=== PATIENT | female | born 1970 | race African-American/Black ===

== ENCOUNTER 2022-11-07 02:49 | Inpatient (IN) ==
[2022-11-07] MEDS ORDERED: ONDANSETRON INJ 2 MG/ML 2 ML VIAL IV STA (03:01)
[2022-11-07] MEDS ORDERED: PIPERACILLIN/TAZOBACTAM 4.5 GM/120 ML BAG IV ONE (03:01)
[2022-11-07] MEDS ORDERED: MoRPHine SULFATE 4 MG/ML 1 ML CARP\\VIAL IV STA (03:01)
[2022-11-07] MEDS ORDERED: DIPHTHERIA/TETANUS/PERTUSSIS Vaccine (Tdap, Age 7+yrs) 0.5mL SYR/VL IM ONE (03:09)
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
[2022-11-07] MEDS ORDERED: TXA 10% Non-IV Routes 100 MG/ML VIAL TOP ONE ×2 (03:11→04:32)
[2022-11-07] MEDS ORDERED: SODIUM CHLORIDE 0.9% 1000ML 1,000 ML IV SCH (03:15)
[2022-11-07] MEDS ORDERED: OPTIRAY 320 500ml IV ONE (03:30)
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
[2022-11-07 03:59] LABS: Basophils # (auto) 0.04 K/uL (0-0.2); Basophils % (auto) 0.3 %; Eosinophils # (auto) 0.07 K/uL (0-0.50); Eosinophils % (auto) 0.5 %; Hematocrit (blood only) 42.9 % (37.0-47.0); Hemoglobin 15.2 g/dl (12.0-16.0); Immature Granulocytes # (auto) 0.05 K/uL (0.01-0.20); Immature Granulocytes % (auto) 0.3 %; Lymphocytes % (auto) 12.6 %; Mean Corpuscular Hemoglobin 33.9 pg (25.0-34.0); Mean Corpuscular Hgb Conc 35.4 g/dL (32.0-36.0); Mean Corpuscular Volume 95.8 fL (80.0-100.0); Mean Platelet Volume 9.4 fL (9.4-12.4); Monocytes # (auto) 0.75 K/uL (0.11-0.59); Neutrophils # (auto) 12.26 K/uL (1.40-6.50); Neutrophils % (auto) 81.3 %; Platelet Count 195 K/uL (130-400); RDW Coefficient of Variation 13.2 % (11.5-14.5); RDW Standard Deviation 47.1 fL (36.4-46.3); Red Blood Count 4.48 M/uL (4.20-5.40); White Blood Count 15.07 K/ul (4.8-10.8)
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
[2022-11-07 04:13] LABS: Albumin Globulin Ratio 1.6 (0.9-2); Albumin Level 4.4 gm/dl (3.4-5.0); BUN Creatinine Ratio 18.3 (10-20); Bilirubin,Total 0.4 mg/dl (0.2-1.0); Calcium 9.4 mg/dl (8.6-10.3); Creatinine Clr Calc Pharmacy 4.9 ml/min; Est GFR (Non-African American) 59.6 ml/min; Globulin 2.8 gm/dl (2.5-4.0); Potassium 3.5 mmol/L (3.5-5.1); Total Protein 7.2 gm/dl (6.0-8.3)
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
[2022-11-07 04:20] LABS: Troponin I High Sensitivity 12.3 pg/ml (0-14)
[2022-11-07 04:39] LABS: INR 2.7 (0.9-1.1); Partial Thromboplastin Ratio 1.4; Partial Thromboplastin Time 39.8 Seconds (21.0-31.0); Prothrombin Time 27.7 Seconds (9.0-12.0)
[2022-11-07] MEDS ORDERED: PHYTONADIONE 5 MG in DEXTROSE 5% 50 ML IV ONE (04:44)
[2022-11-07] MEDS ORDERED: PHYTONADIONE 10 MG in DEXTROSE 5% 50 ML IV ONE (04:52)
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
[2022-11-07] MEDS ORDERED: ACETAMINOPHEN 1,000 MG/100 ML VIAL IV PRN (08:36)
[2022-11-07] MEDS ORDERED: MoRPHine SULFATE 4 MG/ML 1 ML CARP\\VIAL IV PRN (08:36)
[2022-11-07] MEDS ORDERED: SODIUM CHLORIDE 0.9% 250 ML IV PRN (08:36)
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
[2022-11-07 09:54] LABS: INR 1.8 (0.9-1.1); Prothrombin Time 18.8 Seconds (9.0-12.0)
[2022-11-07] MEDS: LACTATED RINGER'S 1,000 ML IV SCH ×2 (10:34→23:05)
[2022-11-07] MEDS: MoRPHine SULFATE 2 MG/ML CARP IV PRN ×2 (10:37→19:23)
[2022-11-07] MEDS: NICOTINE 14 MG/24 HR PATCH TD SCH (11:27)
--- NOTE | 2022-11-07 11:48 | Electrocardiogram Report ---
Test Reason : Blood Pressure : / mmHG Vent. Rate : 113 BPM Atrial Rate : 113 BPM P-R Int : 134 ms QRS Dur : 078 ms QT Int : 352 ms P-R-T Axes : 072 047 030 degrees QTc Int : 482 ms Sinus tachycardia Otherwise normal ECG No previous ECGs available Confirmed by Rod Finley ([id number]) on 11/07/2022 11:47:52 AM Referred By: REFERRED SELF Confirmed By:Keith Finley
[2022-11-07] MEDS: AMPICILLIN/SULBACTAM SOD 3,000 MG in 0.9 % SODIUM CHLORIDE 100 ML IV SCH ×3 (12:26→22:31)
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
--- NOTE | 2022-11-07 20:45 | Billing Data ---
Date of Service November 07, 2022 Coding Level of Care Code 83157 INT INP/OBS CARE
[2022-11-07] MEDS: ONDANSETRON INJ 2 MG/ML 2 ML VIAL IV PRN (21:29)
[2022-11-08] MEDS: AMPICILLIN/SULBACTAM SOD 3,000 MG in 0.9 % SODIUM CHLORIDE 100 ML IV SCH ×4 (04:32→22:29)
[2022-11-08] MEDS: MoRPHine SULFATE 2 MG/ML CARP IV PRN ×2 (05:44→09:26)
[2022-11-08 07:11] LABS: Basophils # (auto) 0.02 K/uL (0-0.2); Basophils % (auto) 0.2 %; Eosinophils # (auto) 0.07 K/uL (0-0.50); Eosinophils % (auto) 0.9 %; Hematocrit (blood only) 40.7 % (37.0-47.0); Hemoglobin 13.8 g/dl (12.0-16.0); Immature Granulocytes # (auto) 0.02 K/uL (0.01-0.20); Immature Granulocytes % (auto) 0.2 %; Lymphocytes # (auto) 2.28 K/uL (1.2-3.4); Lymphocytes % (auto) 27.7 %; Mean Corpuscular Hemoglobin 33.7 pg (25.0-34.0); Mean Corpuscular Hgb Conc 33.9 g/dL (32.0-36.0); Mean Corpuscular Volume 99.3 fL (80.0-100.0); Mean Platelet Volume 10.1 fL (9.4-12.4); Monocytes # (auto) 0.57 K/uL (0.11-0.59); Monocytes % (auto) 6.9 %; Neutrophils # (auto) 5.27 K/uL (1.40-6.50); Neutrophils % (auto) 64.1 %; Platelet Count 175 K/uL (130-400); RDW Coefficient of Variation 13.5 % (11.5-14.5); RDW Standard Deviation 49.8 fL (36.4-46.3); White Blood Count 8.23 K/ul (4.8-10.8)
[2022-11-08 07:30] LABS: Albumin Globulin Ratio 1.5 (0.9-2); Albumin Level 3.7 gm/dl (3.4-5.0); BUN Creatinine Ratio 12.8 (10-20); Bilirubin,Total 0.7 mg/dl (0.2-1.0); Calcium 8.9 mg/dl (8.6-10.3); Creatinine Clr Calc Pharmacy 82.7 ml/min; Est GFR (African American) 91.9 ml/min; Est GFR (Non-African American) 79.3 ml/min; Globulin 2.5 gm/dl (2.5-4.0); Magnesium 1.7 mg/dl (1.7-2.4); Phosphorus 3.2 mg/dl (2.5-4.9); Potassium 3.6 mmol/L (3.5-5.1); Total Protein 6.2 gm/dl (6.0-8.3)
[2022-11-08 07:46] LABS: INR 1.2 (0.9-1.1); Partial Thromboplastin Time 28.8 Seconds (21.0-31.0); Prothrombin Time 12.5 Seconds (9.0-12.0)
--- NOTE | 2022-11-08 09:27 | Anesthesiology Consultation ---
Date of Service November 08, 2022 Assessment & Plan (1) Encounter for pre-operative examination: Chart Review Chart Review: Acceptable Risk for Surgery History Surgery Operation Date: 11/08/22 07:00 Proposed Procedures p Closed Reduction Anterior Lower Jaw Fracture - Mook Rodarte, OSMEL Height/Weight Height: 5 ft 4 in Weight: 83.5 kg Allergies Allergy/AdvReac Type Severity Reaction Status Date / Time bee venom protein (honey bee) Allergy Severe Swelling Unverified 11/07/22 09:49 of Lip/Tongue/Throat Sulfa (Sulfonamide Allergy Severe Hives and Unverified 11/07/22 09:49 Antibiotics) swelling bupropion Allergy Intermediate Unknown Unverified 11/07/22 09:49 Medications Home Medications Medication Instructions Recorded Confirmed Last Taken albuterol sulfate 90 mcg/actuation 2 puff inhalation Q4H PRN Wheezing 11/07/22 11/07/22 11/06/22 aerosol inhaler amlodipine 10 mg tablet 10 mg PO HS 11/07/22 11/07/22 11/06/22 aspirin 81 mg tablet 81 mg PO HS 11/07/22 11/07/22 11/06/22 atorvastatin 80 mg tablet 80 mg PO HS 11/07/22 11/07/22 11/06/22 diphenhydramine HCl 25 mg capsule 25 mg PO HS PRN Sleep 11/07/22 11/07/22 11/06/22 (Benadryl) fexofenadine 180 mg tablet 180 mg PO HS 11/07/22 11/07/22 11/06/22 fluticasone propionate 110 2 puff inhalation BID 11/07/22 11/07/22 11/06/22 mcg/actuation HFA aerosol inhaler (Flovent HFA) valacyclovir 500 mg tablet 500 mg PO HS 11/07/22 11/07/22 11/06/22 warfarin 5 mg tablet 7.5 mg PO 3XWK 11/07/22 11/07/22 11/06/22 warfarin 5 mg tablet 10 mg PO 4XWK 11/07/22 11/07/22 11/06/22 Active Medications Generic Name Dose Route Start Last Admin Trade Name Freq PRN Reason Stop Dose Admin Ampicillin Sodium/Sulbactam 108 mls @ 200 mls/hr 11/07/22 11:00 11/08/22 05:19 Sodium 3,000 mg/ Sodium IV 11/09/22 10:59 Infused Chloride Q6H TERRI Infusion Protocol Lactated Ringer's 1,000 mls @ 80 mls/hr 11/07/22 10:30 11/08/22 05:19 Lr IV 12/07/22 10:29 80 mls/hr .[id number] TERRI Infusion Morphine Sulfate 2 mg 11/07/22 08:36 11/08/22 05:44 Morphine Sulfate 2 Mg/Ml Carp IV 11/21/22 08:35 2 mg Q3H PRN Administration Moderate Pain (Scale 4, 5, 6) Nicotine 14 mg 11/07/22 10:45 11/07/22 11:27 Nicotine 14 Mg/24 Hr Patch TD 12/07/22 10:44 14 mg QAM TERRI Administration Ondansetron HCl 4 mg 11/07/22 21:22 11/07/22 21:29 Ondansetron Inj 2 Mg/Ml 2 Ml Vial IV 12/07/22 21:21 4 mg Q4H PRN Administration Nausea Past Medical History Medical History (Updated 11/08/22 @ 09:29 by Geronimo Bowen MD) Factor V Leiden mutation Hx of femoral artery thrombosis Peripheral arterial disease Past Surgical History Surgical History (Updated 11/08/22 @ 09:29 by Geronimo Bowen MD) Hx of endarterectomy bilateral ileofemoral Social History Smoking Status: Current every day smoker tobacco type: cigarettes Do You Dip or Chew Tobacco: No Hx Alcohol Use: Yes Hx Substance Use: No Physical Exam Vital Signs Last Vital Signs Temp 36.8 C 11/08/22 07:30 Pulse 54 L 11/08/22 07:30 Resp 14 11/08/22 07:30 BP 175/70 H 11/08/22 07:30 Pulse Ox 97 11/08/22 07:30 O2 Del Method Room Air 11/08/22 07:30 Testing Laboratory Results 11/08/22 06:26 11/08/22 06:26 PT 12.5 Seconds (9.0-12.0) H 11/08/22 06:26 INR 1.2 (0.9-1.1) H 11/08/22 06:26 APTT 28.8 Seconds (21.0-31.0) 11/08/22 06:26 Blood Type A Negative 11/07/22 08:47 Antibody Screen NEGATIVE 11/07/22 08:47 Electrocardiogram Date: 11/07/22 Findings: + ST @ (367)
[2022-11-08] MEDS: NICOTINE 14 MG/24 HR PATCH TD SCH (09:30)
[2022-11-08] MEDS: ONDANSETRON INJ 2 MG/ML 2 ML VIAL IV PRN (09:34)
[2022-11-08] MEDS ORDERED: OXYMETAZOLINE 0.05% 30 ML BTL ONE (10:03)
[2022-11-08] MEDS ORDERED: fentaNYL citrate PF 100 MCG/2 ML VIAL ONE ×2 (10:10→11:37)
[2022-11-08] MEDS ORDERED: MIDAZOLAM HCL 1 MG/ML 2ML VIAL ONE (10:10)
[2022-11-08] MEDS ORDERED: SCOPOLAMINE 1 MG TDSY TD ONE (10:56)
[2022-11-08] MEDS ORDERED: KETOROLAC 30 MG/ML VIAL IV PRN (10:59)
[2022-11-08] MEDS ORDERED: ATROPINE SULFATE 0.1 MG/ML 10ML SYR IV PRN (10:59)
[2022-11-08] MEDS ORDERED: PROMETHAZINE HCL 6.25 MG in SODIUM CHLORIDE 0.9% 50 ML IV PRN (10:59)
[2022-11-08] MEDS ORDERED: LABETALOL HCL IV 5 MG/ML 20ML IV PRN (10:59)
[2022-11-08] MEDS ORDERED: ONDANSETRON INJ 2 MG/ML 2 ML VIAL IV PRN (10:59)
[2022-11-08] MEDS ORDERED: BUPIVACAINE/EPINEPHRINE 0.5% 1:200,000 1.8 ML CARP ONE (11:00)
--- NOTE | 2022-11-08 11:04 | History & Physical Bridge Note ---
Date of Service November 08, 2022 History & Physical Bridge Note I have examined the patient, reviewed the History & Physical and in the interval since the performance of the History & Physical I have noted the following changes of clinical significance: no changes notedI reviewed the treatment plan with Mrs. Purcell Understanding was expressed. OK for the planned procedures.
[2022-11-08] MEDS ORDERED: CHLORHEXIDINE GLUCONATE 0.12% 480 ML MT ONE (11:22)
[2022-11-08] MEDS ORDERED: PROPOFOL IV EMULSION 10 MG/ML 20 ML VIAL IV ONE (11:39)
[2022-11-08] MEDS ORDERED: LIDOCAINE 2% 2 ML VIAL/AMP(20MG/ML) INFIL ONE (11:39)
[2022-11-08] MEDS ORDERED: DEXAMETHASONE SOD INJ 4 MG/ML VIAL ONE (11:39)
[2022-11-08] MEDS ORDERED: LARYING-O-JET KIT (LTA) ONE (11:39)
[2022-11-08] MEDS ORDERED: ONDANSETRON INJ 2 MG/ML 2 ML VIAL ONE (11:39)
[2022-11-08] MEDS ORDERED: METOCLOPRAMIDE HCL INJ 5 MG/ML 2 ML VIAL ONE (11:39)
[2022-11-08] MEDS ORDERED: NEOSTIGMINE METHYLSULFATE 1 MG/ML 10ML VIAL ONE (12:33)
[2022-11-08] MEDS ORDERED: GLYCOPYRROLATE 0.2 MG/ML VIAL ONE (12:33)
[2022-11-08] MEDS: fentaNYL citrate PF 100 MCG/2 ML VIAL IV PRN ×2 (12:34→12:39)
--- NOTE | 2022-11-08 12:52 | Anesthesiology Progress Note ---
Date of Service November 08, 2022 Anesthesia Post Procedure Vital Signs Vital Signs: Temp Pulse Pulse Resp BP BP Pulse Ox 11/08/22 12:35 63 13 191/102 H 100 11/08/22 12:29 36.0 C L 66 12 187/88 H 100 11/08/22 10:47 37.1 C 16 L 16 163/107 H 95 11/08/22 08:00 11/08/22 07:30 36.8 C 54 L 14 175/70 H 97 11/07/22 21:00 36.7 C 67 18 134/75 100 11/07/22 14:20 36.6 C 56 L 16 141/85 H 96 O2 Del Method O2 Flow Rate 11/08/22 12:35 Oxymask 6 11/08/22 12:29 Oxymask 6 11/08/22 10:47 Room Air 11/08/22 08:00 Room Air 11/08/22 07:30 Room Air 11/07/22 21:00 Room Air 11/07/22 14:20 Room Air Pain Intensity Mouth: Pain Intensity: 1 Throat: Pain Intensity: 8 Transfer of Care Handoff Completed per policy Notes Mental Status: alert / awake / arousable Patient Amnestic to Procedure: Yes Nausea / Vomiting: adequately controlled Pain: adequately controlled Airway Patency, RR, SpO2: stable & adequate BP & HR: stable & adequate Hydration State: stable & adequate Anesthetic Complications: no major complications apparent
--- NOTE | 2022-11-08 13:12 | Operative Report ---
PG Post Operative Report Pre & Post Diagnosis Operation Date: 11/08/22 07:00 Pre-Op Diagnosis: Facial Trauma, Mandible Fracture Post-Op Diagnosis: Facial Trauma, Mandible Fracture I identified the patient and participated in the time-out.: Yes Procedure Operation Date: 11/08/22 07:00 Actual Procedures p Reduce anterior segmental fracture(Not Applicable) - Mook Rodarte, OSMEL Surgeon Mook Rodarte, OSMEL Computer Forensic Specialist none Estimated Blood Loss 5 Findings Consistent with Post-Op Diagnosis segmental alveolar fracture from area 23-26 displaced # 25,26 Laceration mucogingival fold Specimens none Drains none Anesthesia Type General Complications none Indications segmental fracture Description of Procedure Pre-op=Segmental alveolar fracture of the lower anterior mandibular teeth #24-26 Gingival laceration 1 cm mucolabial fold (right side) CPT 03295 closed reduction of mandibular segmental alveolar fracture ICD10 S02.670A fracture of alveolus of the mandible Once cleared for surgery general anesthesia was achieved, the eyes were protected by the anesthesia dept criteria.. A time out was take for patient ID, antibiotics, equipment and position verification once all agreed the procedure began. Local anesthesia was given into each area using Marcaine with a vasoconstrictor ( 1.8 ml per site). A throat pack was placed after the oral cavity was irrigated with saline. Once a surgical level of anesthesia was obtained and the local anesthesia was given time for the blocks the surgery was started. Placement of Arch Wires Lower anterior teeth and repair of Gingival laceration 1 cm mucolabial fold (right side) Local anesthesia in the form of Marcaine with a vasoconstrictor, approximately 4 carpules of the local anesthesia was injected. The fractured was reduced- by repositioning # 25 and 26, the occlusion was checked and found to be stable. The prognosis of 25 is guarded. There was a large chunk of the alveolar bone attached to the root of 25. The periodontal arch wires were placed on the lower teeth 22-28 with 25 gauge stainless steel wires. It was noted that there was good stability of the fracture and the anterior teeth. Simple repair of a 1 cm oral laceration Now using a 2-0 chromic suture the deep laceration involving the gingival and mucosal tissue was repaired. A good water tight closure was obtained. There was no bleeding and coagulation was excellent. A closed periodontal wiring technique for reduction was necessary for adequate stability. I would plan at least 6 weeks or fixation and follow up with dental X Rays. I inspected the sites to insure all bleeding was controlled. I removed the throat pack and suctioned the throat. All instrument and sponge count was correct. the patient was allowed to awake from the anesthesia. Once full awake the anesthesia tube was removed and the patient was taken to the recovery room with all vital sign stable. The patient tolerated the surgery very well. Rx and instructions will be given upon discharge. Follow up will be in [facility] I gave her my card and phone numbers for her local providers to contact me as necessary I attest to the content of the Intraoperative Record and any orders documented therein. Any exceptions are noted below.
[2022-11-08] MEDS ORDERED: hydrALAZINE HCL 20 MG/ML VIAL IV STA (13:18)
[2022-11-08] MEDS ORDERED: oxyCODONE/ACETAMINOPHEN 5mg/325mg TAB PO PRN (13:30)
[2022-11-08] MEDS: LACTATED RINGER'S 1,000 ML IV SCH (13:36)
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
[2022-11-08] MEDS: oxyCODONE/ACETAMINOPHEN 5mg/325mg TAB PO PRN ×2 (14:19→21:38)
[2022-11-08] MEDS ORDERED: amLODIPine BESYLATE 5 MG TAB PO ONE (14:58)
[2022-11-08] MEDS ORDERED: MoRPHine SULFATE 2 MG/ML CARP IV ONE ×2 (17:30→23:23)
[2022-11-08] MEDS ORDERED: ASPIRIN 81 MG ECTAB PO SCH (21:00)
[2022-11-08] MEDS ORDERED: amLODIPine BESYLATE 5 MG TAB PO SCH (21:00)
[2022-11-08] MEDS ORDERED: ATORVASTATIN 40 MG TAB PO SCH (21:00)
[2022-11-08] MEDS: ENOXAPARIN 80 MG/0.8 ML SYR SQ SCH (21:40)
[2022-11-09] MEDS: oxyCODONE/ACETAMINOPHEN 5mg/325mg TAB PO PRN (02:53)
[2022-11-09] MEDS: AMPICILLIN/SULBACTAM SOD 3,000 MG in 0.9 % SODIUM CHLORIDE 100 ML IV SCH (05:00)
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
[2022-11-09] MEDS: ENOXAPARIN 80 MG/0.8 ML SYR SQ SCH (08:31)
[2022-11-09] MEDS: NICOTINE 14 MG/24 HR PATCH TD SCH (08:32)
[2022-11-09] MEDS ORDERED: AMOXICILLIN/CLAVULANATE 875 MG TAB PO SCH (09:00)
--- NOTE | 2022-11-09 14:41 | Oral/Maxillofacial Progress Nt ---
Date of Service November 09, 2022 Assessment & Plan Admission and Anticipated Discharge Date Admission Date: November 07, 2022 Subjective surgery post op note at 24 hours OK for Discharge today - she will be making plans to return to [place] Excellent result, ROM improving almost back to normal pre-surgical range Sutures in place Wires in place Teeth stable--patient happy with the result Tissue tone, gingival tissue--excellent Occlusion very stable with a reproducible bite. No TMJ issues-pain, nose, pop. General dental followup pending once patient gets home No nasal congestion or bleeding, septum well positioned. No sinus issues Reviewed post op care--diet, oral care, need for local follow up once back home Overall excellent result from recent reduction of segmental fracture of the lower anterior teeth Results & Data Vital Signs (Past 12 Hours) Vital Signs Temp Pulse Resp BP Pulse Ox O2 Del Method 11/09/22 08:00 Room Air 11/09/22 07:43 36.6 C 61 17 124/68 94 Room Air 11/09/22 02:54 36.7 C 57 L 16 168/74 H 95 Room Air PG Care Time/CCT Total # of Minutes Spent Total Time Spent with Patient: Total time spent is greater than 50% in coordination of care (as documented) at patient's floor/unit and/or counseling patient: Coding Level of Care Code None Diagnoses
[2022-11-09] MEDS ORDERED: WARFARIN SOD 10 MG TAB PO SCH (16:00)
[2022-11-09] MEDS ORDERED: amLODIPine BESYLATE 5 MG TAB PO SCH (21:00)
== END 2022-11-09 11:28 | disposition home or self-care (01) | DRG 158 ==
LOC: ED 02:49 → SUATTDRO 05:18 → 3N 05:18
DX: T76.11XA Adult physical abuse, suspected, initial encounter; S16.1XXA Strain of muscle, fascia and tendon at neck level, initial encounter; Y04.2XXA Assault by strike against or bumped into by another person, initial encounter; Z79.51 Long term (current) use of inhaled steroids; S02.5XXA Fracture of tooth (traumatic), initial encounter for closed fracture; I73.9 Peripheral vascular disease, unspecified; I10 Essential (primary) hypertension; Z79.01 Long term (current) use of anticoagulants; D68.51 Activated protein C resistance; Z79.899 Other long term (current) drug therapy; Z86.718 Personal history of other venous thrombosis and embolism; Z79.82 Long term (current) use of aspirin; Z23 Encounter for immunization; Z88.8 Allergy status to other drugs, medicaments and biological substances; Y99.8 Other external cause status; Z88.2 Allergy status to sulfonamides; Y04.8XXA Assault by other bodily force, initial encounter; Y07.030 Male partner, current, perpetrator of maltreatment and neglect; F17.210 Nicotine dependence, cigarettes, uncomplicated; S01.512A Laceration without foreign body of oral cavity, initial encounter; Z91.030 Bee allergy status; S02.671A Fracture of alveolus of right mandible, initial encounter for closed fracture; S06.9X9A Unspecified intracranial injury with loss of consciousness of unspecified duration, initial encounter